=== PATIENT | female | born 1995 | race Caucasian/White ===

== ENCOUNTER 2016-08-11 21:04 | Emergency (ER) | payer OTHER ==
[2016-08-11] MEDS ORDERED: IBUPROFEN 600 MG TABLET PO ONE ×2 (21:30→21:32)
== END 2016-08-11 23:52 | disposition home or self-care (01) ==
DX: M54.2 Cervicalgia (principal); M54.6 Pain in thoracic spine; J45.909 Unspecified asthma, uncomplicated; V49.49XA Driver injured in collision with other motor vehicles in traffic accident, initial encounter; Y93.89 Activity, other specified; Y92.89 Other specified places as the place of occurrence of the external cause; Y99.9 Unspecified external cause status
CPT/HCPCS: 72050; 72074; 84703; 99285; A4606; Z7610